=== PATIENT | male | born 1970 | race Caucasian/White ===

== ENCOUNTER 2022-06-07 08:16 | Emergency (ER) | payer BC ==
[2022-06-07 08:25] VITALS: RESP 20; TEMP 98
[2022-06-07] MEDS ORDERED: DIPH,PERTUS(ACELL)TETVAC-LF 0.5 ML VIAL IM ONE (08:34)
[2022-06-07] MEDS ORDERED: LIDOCAINE 1% INJ 10MG/ML (30 ML VIAL-PF) SQ ONE (08:35)
[2022-06-07] MEDS ORDERED: KETOROLAC 15 MG/ML 1 ML VIAL IM STA (08:52)
--- NOTE | 2022-06-07 09:27 | XR ---
EXAMINATION TYPE: XR hand complete LT DATE OF EXAM: 06/07/2022 COMPARISON: NONE HISTORY: Swelling TECHNIQUE: Three views are submitted. FINDINGS: The osseous structures are intact. The joint spaces are preserved and there is no acute fracture or dislocation. Soft tissue edema and emphysema along the dorsum. IMPRESSION: 1. No definite acute fracture or dislocation if symptoms persist, follow-up study in 7 to 10 days wo uld be suggested. 2. Soft tissue edema and emphysema along the dorsum of the hand associated with cellulitis correlate clinically.
--- NOTE | 2022-06-07 10:07 | ED ---
Animal Bite HPI - General Chief Complaint: Animal Bite Stated Complaint: dog bite Time Seen by Provider: 06/07/22 08:28 Source: patient, RN notes reviewed Mode of arrival: ambulatory Limitations: no limitations - History of Present Illness Initial Comments: Patient is a 52-year-old male presenting to the emergency room with complaints of his stomach biting his left hand and wrist region earlier this morning. He states that his tox vaccinations are up-to-date. He reports pain with range of motion of his hand but denies any range of motion impairment not restricted by dorsal aspect swelling. He is unsure of his tetanus vaccination status the police that he is not up-to-date. He denies any injuries to any other body part and denies any other complaints or concerns this time. He has a past medical history significant for hypertension. - Related Data Previous Rx's Medication Instructions Recorded Amoxic-Pot Clav 875-125Mg 1 tab PO Q12HR 7 Days #14 tab 06/07/22 [Augmentin 875-125] Allergies Allergy/AdvReac Type Severity Reaction Status Date / Time No Known Allergies Allergy Verified 06/07/22 08:25 Review of Systems ROS Statement: Those systems with pertinent positive or pertinent negative responses have been documented in the HPI. ROS Other: All systems not noted in ROS Statement are negative. Past Medical History Past Medical History: Hypertension History of Any Multi-Drug Resistant Organisms: None Reported Past Surgical History: Appendectomy Past Psychological History: No Psychological Hx Reported Smoking Status: Never smoker Past Alcohol Use History: Occasional General Exam Limitations: no limitations General appearance: alert, in no apparent distress Head exam: Present: atraumatic, normocephalic, normal inspection Eye exam: Present: normal appearance, PERRL, EOMI. Absent: scleral icterus, conjunctival injection, periorbital swelling ENT exam: Present: normal exam, mucous membranes moist Neck exam: Present: normal inspection, full ROM Respiratory exam: Absent: respiratory distress, accessory muscle use Cardiovascular Exam: Present: regular rate GI/Abdominal exam: Absent: distended Left Hand Wrist exam: Present: full ROM, tenderness, swelling (Mid hand with laceration/puncture centrally no ecchymosis or purulent drainage), laceration (4 laceration/puncture wounds to the dorsal aspect of left hand all approximately 1 cm in legnth. 2 laceration/puncture wounds to the palmar aspect of left hand 1 near wrist junction radial aspect all approximately 1 cm in length.). Absent: amputation, nail avulsion Vascular: Absent: vascular compromise Back exam: Present: normal inspection Neurological exam: Present: alert, oriented X3, CN II-XII intact Psychiatric exam: Present: normal affect, normal mood Skin exam: Present: other (Laceration/puncture wounds as above) Course Vital Signs 06/07/22 06/07/22 08:23 10:20 Temperature 98 F 98 F Pulse Rate 78 82 Respiratory 20 20 Rate Blood Pressure 133/85 142/78 O2 Sat by Pulse 96 98 Oximetry Procedures - Laceration Laceration #1 Consent Obtained: verbal consent Indication: laceration Site: hand Size (cm): 1 (6 scattered laceration/puncture wounds) Description: linear Depth: simple, single layer Anesthetic Used: lidocaine 1% Anesthesia Technique: local infiltration Pre-repair: wound explored, irrigated extensively Type of Sutures: nylon Size of Sutures: 4-0 Number of Sutures: 1 (Per each site total of 6 sutures) Technique: simple, interrupted Patient Tolerated Procedure: well, no complications Medical Decision Making - Medical Decision Making 52-year-old male presenting to the emergency room with complaints of a dog bite to left hand. Unknown tetanus status. No concern regarding rabies as dog's vaccinations are up-to-date. Due to number of puncture wounds along with swelling will obtain x-ray of the left hand to rule out any fractures. Pain medication options discussed with patient. Will give Toradol IM for pain, give tetanus vaccination and plan for laceration closure once x-ray completed. No indication for laboratory studies. No indication for IV antibiotics and less x- ray reveals fracture. X-ray left hand image reviewed by myself with no evidence of fractures. Soft tissue swelling noted. Will proceed with closure of lacerations with loose stitch to each 6 puncture wound. Patient tolerated suturing of puncture sites well without complication. Wound care discussed with patient and spouse. Will place on antibiotics for infection prevention. Advised follow-up with primary care provider or return to the emergency room as needed. Will discharge home in stable condition. Case discussed with Dr. Leonardo. - Radiology Data Radiology results: report reviewed, image reviewed X-ray left hand complete compression by radiologist no defined acute fracture or dislocation system persist follow-up study in 7-10 days would be suggested. Soft tissue edema and emphysema along the dorsum of the hand associated with cellulitis, correlate clinically. Disposition Clinical Impression: Dog bite Disposition: HOME SELF-CARE Instructions (If sedation given, give patient instructions): Animal Bite (ED) Additional Instructions: Please wound clean and dry. Complete course of antibiotics as prescribed. Monitor for signs and symptoms of infection and seek medical attention as appropriate if symptoms occur. Please follow-up with your primary care provider for suture removal in 7 days. Please return to the Emergency Department if symptoms worsen or any other concerns. Prescriptions: Amoxic-Pot Clav 875-125Mg [Augmentin 875-125] 1 tab PO Q12HR 7 Days #14 tab Is patient prescribed a controlled substance at d/c from ED?: No Referrals: Lauro Alfaro DO [Primary Care Provider] - 1-2 days Time of Disposition: 10:00
[2022-06-07 10:21] VITALS: BP 142/78; PULSE 82
== END 2022-06-07 10:21 | disposition home or self-care (01) ==
LOC: EC 08:16
DX: S61.552A Open bite of left wrist, initial encounter (principal); Z23 Encounter for immunization; I10 Essential (primary) hypertension; W54.0XXA Bitten by dog, initial encounter
CPT/HCPCS: 90471; 12001; 96372 ×2; 99283; 73130; 90715; J2001; J1885